=== PATIENT | female | born 1970 | race Caucasian/White ===

== ENCOUNTER 2022-05-19 09:13 | Emergency (ER) | payer OTHER, SELFPAY ==
[2022-05-19 09:20] VITALS: BP 120/77; PULSE 71; RESP 16; TEMP 36.3; O2SAT 100
--- NOTE | 2022-05-19 09:37 | ED.URI ---
HPI - URI/Sore Throat General Chief Complaint: Upper Respiratory Infection Stated Complaint: strep test Source: patient and RN notes reviewed History of Present Illness HPI Narrative: 52-year-old female presents urgent care with complaints of a sore throat x2 days. Patient denies any fevers, chills, congestion, ear pain, headache, vomiting, or diarrhea. Patient takes a daily allergy medicine with minimal relief. Some parts of this dictation were generated by voice recognition software and may contain typographical and/or grammatical inaccuracies. Related Data Home Medications Medication Instructions Recorded Confirmed estradiol 1 mg tablet 1 mg PO DAILY 05/19/22 05/19/22 montelukast 10 mg tablet 10 mg PO DAILY 05/19/22 05/19/22 sumatriptan succinate 100 mg tablet 100 mg PO DAILY PRN Migraine 05/19/22 05/19/22 Headache Allergies Allergy/AdvReac Type Severity Reaction Status Date / Time Sulfa (Sulfonamide Allergy Intermediate Hives Verified 05/19/22 09:42 Antibiotics) Review of Systems Review of Systems: Pertinent positives and pertinent negatives per HPI. PMFSH Comments At the time of my signature, I reviewed and agree with the nursing past medical, surgical, social, and family history. There is no relevant family history pertinent to the patient complaint. Exam Narrative: GENERAL: This is a well-nourished, well-developed patient, in no apparent distress. HEAD: normocephalic, atraumatic. EYES: PERRL. Sclera clear/white. Vision is grossly intact. EARS: External ears normal, auditory canals clear and without drainage, TMs normal without perforation. Hearing grossly intact. NOSE: External nose normal with no obvious nasal discharge, nares without redness, no rhinorrhea. THROAT: Mucous membranes moist, posterior pharynx clear. NECK: Neck supple, non-tender without lymphadenopathy, masses or thyromegaly. CARDIOVASCULAR: Regular rate and rhythm without murmurs, gallops, or rubs. RESPIRATORY: Clear to auscultation. Breath sounds equal bilaterally. No wheezes, rales, or rhonchi. GASTROINTESTINAL: Abdomen soft, non-tender, nondistended. Bowel sounds are active. No hepato-splenomegaly, or palpable masses. No guarding. SKIN: warm, intact with no suspicious lesions or rash, good texture and turgor. NEURO: awake, alert, and oriented to person, place and time. There were no obvious focal neurologic abnormalities. Course Course Level of Care: Express Care Visit Vital Signs Vital signs: Vital Signs Temperature 97.4 F L 05/19/22 09:20 Pulse Rate 71 05/19/22 09:20 Respiratory Rate 16 05/19/22 09:20 Blood Pressure 120/77 05/19/22 09:20 Pulse Oximetry 100 05/19/22 09:20 Oxygen Delivery Room Air 05/19/22 09:20 Temperature 97.4 F L 05/19/22 09:20 Pulse Rate 71 05/19/22 09:20 Respiratory Rate 16 05/19/22 09:20 Blood Pressure 120/77 05/19/22 09:20 Pulse Oximetry 100 05/19/22 09:20 Oxygen Delivery Room Air 05/19/22 09:20 Reviewed MDM - URI/Sore Throat MDM Narrative Medical decision making narrative: Rapid strep is negative in the office; however we will send to the lab for confirmation; there is a small percentage chance that it can come back positive; if it is, we will call you in 2-3days; and your prescription will be call in to your pharmacy. However, there is NO indication for antibiotic at this time. -Increase your fluids and Vitamin C. -Oral rinses such as: Salt water gargles and/or may use topical anesthetic (eg. Chloraseptic spray) or lozenges to relieve dryness or throat pain. -Take tylenol and ibuprofen as needed for pain and fever as directed. -Frequent hand washing or hand envelope folder is one of the best ways to prevent spread of infection. -Follow up with primary care provider in 2-3 days if condition is not improving or seek ER visit if your child starts breathing fast/has trouble breathing, is not drinking enough fluids, muffle voice, difficulty opening the mouth or will not
== END 2022-05-19 09:57 | disposition home or self-care (01) ==
PROVIDERS: Emergency Provider Nurse Practitioner Family; PCP Internal Medicine
DX: J02.9 Acute pharyngitis, unspecified (principal)
CPT/HCPCS: 87081; 87880; 99213; G0463